=== PATIENT | male | born 1945 | race Caucasian/White ===

== ENCOUNTER 2019-08-30 17:03 | Emergency (ER) | payer MEDICARE, BC ==
[2019-08-30] MEDS ORDERED: Diphtheria,Pertussis(Acell),Tetanus Vaccine 0.5 ML SDV IM ONE (17:50)
[2019-08-30] MEDS ORDERED: Bacitracin Oint 1 GM U/D Packet TOP ONE (17:50)
--- NOTE | 2019-08-30 18:06 | EDM.PDOC ---
ED HPI GENERAL MEDICAL PROBLEM - General Chief Complaint: Laceration Stated Complaint: CUT TO LEFT HAND Time Seen by Provider: 08/30/19 17:55 Source of Information: Reports: Patient History Limitations: Reports: No Limitations - History of Present Illness INITIAL COMMENTS - FREE TEXT/NARRATIVE: 74-year-old male with an injury to his left hand. A spring released and swung around and struck the back of his left hand causing some superficial abrasions on his fingers and a fairly deep laceration on the back of his hand. It is 5-1/ 2 cm and angled, he can move his fingers and has no distal numbness. He has no bony tenderness. He does need a tetanus booster. Onset: Sudden Duration: Hour(s): (Within the last hour) Location: Reports: Upper Extremity, Left Associated Symptoms: Reports: No Other Symptoms - Related Data Allergies Allergy/AdvReac Type Severity Reaction Status Date / Time No Known Allergies Allergy Verified 08/30/19 17:45 Home Meds: Home Meds Aspirin [Ecotrin EC] 81 mg PO DAILY 08/30/19 [History] Calcium Carb,Cit/D3/Phytostrol [Citracal D + Heart Health] 1 tab PO DAILY [History] Cholecalciferol (Vitamin D3) [Vitamin D3] 1 cap PO DAILY 08/30/19 [History] Vitamin E 400 unit PO DAILY 08/30/19 [History] atorvaSTATin [Lipitor] 1 tab PO DAILY 08/30/19 [History] Past Medical History HEENT History: Reports: Cataract, Impaired Vision Cardiovascular History: Reports: High Cholesterol Respiratory History: Reports: Asthma, COPD Musculoskeletal History: Reports: Fracture Neurological History: Reports: Head Trauma - Past Surgical History Cardiovascular Surgical History: Reports: AAA Repair, Vascular Surgery, Other ( See Below) Other Cardiovascular Surgeries/Procedures: leg stents. heart blockage that was "cleared" not stented. GI Surgical History: Reports: Appendectomy Social & Family History - Tobacco Use Smoking Status *Q: Light Tobacco Smoker Years of Tobacco use: 60 Packs/Tins Daily: 0.2 Tobacco Use Comment: patient in the process of quitting smoking. - Caffeine Use Caffeine Use: Reports: Coffee Other Caffeine Use: "all day long" - Recreational Drug Use Recreational Drug Use: No ED ROS GENERAL - Review of Systems Review Of Systems: See Below Constitutional: Denies: Fever, Chills Respiratory: Denies: Shortness of Breath Cardiovascular: Denies: Chest Pain GI/Abdominal: Denies: Abdominal Pain, Nausea, Vomiting Neurological: Denies: Paresthesia ED EXAM, SKIN/RASH Exam: See Below Exam Limited By: No Limitations General Appearance: Alert, No Apparent Distress Respiratory/Chest: No Respiratory Distress Extremities: Other (Remainder of exam is limited to the left hand. The wrist is nontender, he has a superficial abrasion on the dorsal index finger just proximal to the PIP joint. He has a 5-1/2 cm angled laceration on the dorsal aspect of the hand. The laceration is fairly deep, when cleaned the tendons are visualized but are not injured and are intact.) Neurological: Alert, Oriented Psychiatric: Normal Affect, Normal Mood Course - Vital Signs Last Recorded V/S: Last Vital Signs Temp 97.2 F 08/30/19 17:45 Pulse 75 08/30/19 17:45 Resp 16 08/30/19 17:45 BP 111/60 08/30/19 17:45 Pulse Ox 92 L 08/30/19 17:45 - Orders/Labs/Meds Orders: Active Orders 24 hr Category Date Time Status Vaccines to be Administered [RC] PER UNIT ROUTINE Care 08/30/19 17:50 Active Meds: Medications Discontinued Medications Generic Name Dose Route Start Last Admin Trade Name Perry PRN Reason Stop Dose Admin Bacitracin 1 dose 08/30/19 17:50 08/30/19 18:08 Bacitracin Oint 1 Gm TOP 08/30/19 17:51 1 dose ONETIME ONE Administration Diphtheria/Tetanus/Acell Pertussis 0.5 ml 08/30/19 17:50 08/30/19 18:09 Adacel IM 08/30/19 17:51 0.5 ml .ONCE ONE Administration Lidocaine HCl 5 ml 08/30/19 17:50 08/30/19 18:09 Xylocaine-Mpf 1% INJECT 08/30/19 17:51 5 ml ONETIME ONE Administration - Re-Assessments/Exams Free Text/Narrative Re-Assessment/Exam: 08/30/19 18:34 There is anesthetized with 1% lidocaine, cleansed thoroughly with saline and six 5-0 Ethilon sutures were used to close the wound. Topical bacitracin and pressure dressing was applied, he was also given a Tdap booster. Because of the tendon involvement, he was placed on cephalexin 500 3 times a day for a week , and sutures can be removed in 8 days. Departure - Departure Time of Disposition: 19:07 Disposition: Home, Self-Care 01 Clinical Impression: Laceration of left hand Qualifiers: Encounter type: initial encounter Foreign body presence: without foreign body Qualified Code(s): S61.412A - Laceration without foreign body of left hand, initial encounter - Discharge Information Instructions: Laceration Care, Adult, [id number] Referrals: Hector Wu MD [Primary Care Provider] - Forms: ED Department Discharge Care Plan Goals: Keep wound covered and clean while healing, and increase activity as tolerated. Take antibiotics as prescribed and return in 8 days for suture removal. Return sooner if concerns of infection or not healing satisfactorily. Sepsis Event Note - Evaluation Sepsis Screening Result: No Definite Risk - Focused Exam Vital Signs: Vital Signs Temp Pulse Resp BP Pulse Ox 08/30/19 17:45 97.2 F 75 16 111/60 92 L 08/30/19 17:37 97.2 F 75 16 111/60 92 L Date Exam was Performed: 08/30/19 Time Exam was Performed: 21:03 - My Orders Last 24 Hours: My Active Orders 08/30/19 17:50 Vaccines to be Administered [RC] PER UNIT ROUTINE - Assessment/Plan Last 24 Hours: My Active Orders 08/30/19 17:50 Vaccines to be Administered [RC] PER UNIT ROUTINE
== END 2019-08-30 19:07 | disposition home or self-care (01) ==
LOC: JP.ED 17:03
DX: S61.412A Laceration without foreign body of left hand, initial encounter (principal); Z23 Encounter for immunization; F17.210 Nicotine dependence, cigarettes, uncomplicated; J44.9 Chronic obstructive pulmonary disease, unspecified; E78.00 Pure hypercholesterolemia, unspecified; Z79.899 Other long term (current) drug therapy; Z79.82 Long term (current) use of aspirin; W22.8XXA Striking against or struck by other objects, initial encounter
CPT/HCPCS: 12002; 90471; 90715; 99282; 99283; J2001

== ENCOUNTER 2020-12-06 22:40 | Emergency (ER) | payer MEDICARE ==
--- NOTE | 2020-12-07 00:34 | EDM.PDOC ---
ED HPI GENERAL MEDICAL PROBLEM - General Chief Complaint: Laceration Stated Complaint: SMASHED FINGER-L HAND Time Seen by Provider: 12/06/20 23:05 Source of Information: Reports: Patient History Limitations: Reports: No Limitations - History of Present Illness INITIAL COMMENTS - FREE TEXT/NARRATIVE: Presents emergency room today secondary to catching his left index finger in the high [place] tonight he said currently is not have any pain at rest pain does increased when I was removing bandage as well as during cleaning patient states that he is right-handed and he believes his last tetanus was approximately a year or so ago did continue to work tonight but 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 he decided to come into the emergency room as he felt like he needed some stitches PMH--COPD, HLP Meds--atorvastatin, ASA NKDA Tob--former EtOH/Drug--denies --has received COVID immunization (second dose in July per patient report) --most recent tetnus-Tdap 2019 Onset: Today Onset Time: 19:00 - Related Data Allergies Allergy/AdvReac Type Severity Reaction Status Date / Time No Known Allergies Allergy Verified 12/06/20 23:10 Home Meds: Home Meds Aspirin [Ecotrin EC] 81 mg PO DAILY 08/30/19 [History] Calcium Carb,Cit/D3/Phytostrol [Citracal D + Heart Health] 1 tab PO DAILY 08/30/19 [History] Cholecalciferol (Vitamin D3) [Vitamin D3] 1 cap PO DAILY 08/30/19 [History] Vitamin E 400 unit PO DAILY 08/30/19 [History] atorvaSTATin [Lipitor] 1 tab PO DAILY 08/30/19 [History] Past Medical History HEENT History: Reports: Cataract, Impaired Vision Cardiovascular History: Reports: High Cholesterol Respiratory History: Reports: Asthma, COPD Musculoskeletal History: Reports: Fracture Neurological History: Reports: Head Trauma - Past Surgical History Cardiovascular Surgical History: Reports: AAA Repair, Vascular Surgery, Other (See Below) Other Cardiovascular Surgeries/Procedures: leg stents. heart blockage that was "cleared" not stented. GI Surgical History: Reports: Appendectomy Social & Family History - Tobacco Use Tobacco Use Status *Q: Former Tobacco User Used Tobacco, but Quit: Yes Month/Year Tobacco Last Used: 0 - Caffeine Use Caffeine Use: Reports: Coffee Other Caffeine Use: "all day long" - Recreational Drug Use Recreational Drug Use: No ED ROS GENERAL - Review of Systems Review Of Systems: Comprehensive ROS is negative, except as noted in HPI. Musculoskeletal: Reports: Hand Pain (left index fingertip) Skin: Reports: Wound (left index finger tip) ED EXAM, SKIN/RASH Exam: See Below Exam Limited By: No Limitations General Appearance: Alert, WD/WN, Mild Distress Eye Exam: Bilateral Eye: Normal Inspection Ears: Normal External Exam, Hearing Grossly Normal Nose: Normal Inspection Throat/Mouth: Normal Inspection, Normal Voice, No Airway Compromise Head: Atraumatic, Normocephalic Neck: Normal Inspection, Supple, Full Range of Motion Respiratory/Chest: No Respiratory Distress, Lungs Clear, Normal Breath Sounds Cardiovascular: Normal Peripheral Pulses, Regular Rate, Rhythm, No Edema, No Murmur Peripheral Pulses: 2+: Radial (L), Radial (R) (Male) Exam: Deferred Rectal (Males) Exam: Deferred Extremities: Normal Capillary Refill, Other (has noted finger laceration that involves left index fingertip/lateral edge of nail) Neurological: Alert, Oriented, Normal Cognition, Normal Gait, No Motor/Sensory Deficits Psychiatric: Normal Affect, Normal Mood Skin: Warm, Dry, Normal Color, Wound/Incision (has noted finger laceration that involves left index fingertip/lateral edge of nail) ED SKIN PROCEDURES - Laceration/Wound Repair Left Upper Lateral Dorsal Digit - 2nd (Index) Appearance: Subcutaneous, Clean Distal NVT: Neuro & Vascular Intact Anesthetic Type: Digital Local Anesthesia - Lidocaine (Xylocaine): 1% Plain Local Anesthetic Volume: 3cc Skin Prep: Chlorhexidine (Hibiciens), Saline Saline Irrigation (cc's): 500 Exploration/Debridement/Repair: Wound Explored, No Foreign Material Found Closed with: Sutures Lac/Wound length In cm: 3.5 Suture Size: 3-0 # of Sutures: 5 Suture Type: Prolene Drain Placement: No Sterile Dressing Applied: Nurse Tetanus Status Addressed: Yes Complications: No Progress/Comments: bactroban ointment and dressing with fingertip splint for protection Course - Vital Signs Text/Narrative:: 0105--d/w patient home care measures to include importance of keeping wound clean/covered. wash twice daily (and as necessary if becomes dirty) with soap/water, apply bactroban ointment and cover with dressing and fingersplint for protection. follow up with family doctor/PCM in 1 week for wound check and suture removal Last Recorded V/S: Last Vital Signs Temp 97.6 F 12/06/20 23:09 Pulse 80 12/06/20 23:09 Resp 14 12/06/20 23:09 BP 132/85 12/06/20 23:09 Pulse Ox 92 L 12/06/20 23:09 - Orders/Labs/Meds Orders: Active Orders 24 hr Category Date Time Status Mupirocin Oint [Bactroban Oint] Med 12/07/20 01:02 Once 1 gm TOP ONETIME ONE Meds: Medications Discontinued Medications Generic Name Dose Route Start Last Admin Trade Name Freq PRN Reason Stop Dose Admin Lidocaine HCl 5 ml 12/06/20 23:14 12/06/20 23:50 Lidocaine 1% 5 Ml Sdv INJECT 12/06/20 23:15 5 ml ONETIME ONE Administration Departure - Departure Time of Disposition: 01:07 Disposition: Home, Self-Care 01 Clinical Impression: Laceration of left index finger w/o foreign body with damage to nail, Accident on farm, Crush accident - Discharge Information *PRESCRIPTION DRUG MONITORING PROGRAM REVIEWED*: Not Applicable *COPY OF PRESCRIPTION DRUG MONITORING REPORT IN PATIENT AROLDO: Not Applicable Instructions: Laceration Care, Adult, [id number], Sutures, Sanaz, or Adhesive Wound Closure, [id number], Nail Bed Injury, [id number] Referrals: Hector Wu MD [Primary Care Provider] - Forms: ED Department Discharge Additional Instructions: Home care measures to include importance of keeping wound clean/covered was discussed--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/protected from dirty environment/further injury You should wash twice daily (and as necessary if becomes dirty) with soap/water, apply bactroban ointment and cover with dressing and fingersplint for protection Follow up with family doctor/PCM in 1 week for wound check and suture removal Sepsis Event Note (ED) - Evaluation Sepsis Screening Result: No Definite Risk - Focused Exam Vital Signs: Vital Signs Temp Pulse Resp BP Pulse Ox 12/06/20 23:09 97.6 F 80 14 132/85 92 L - My Orders Last 24 Hours: My Active Orders 12/07/20 01:02 Mupirocin Oint [Bactroban Oint] 1 gm TOP ONETIME ONE - Assessment/Plan Last 24 Hours: My Active Orders 12/07/20 01:02 Mupirocin Oint [Bactroban Oint] 1 TOP ONETIME ONE
[2020-12-07] MEDS ORDERED: Mupirocin Oint 22 GM Tube TOP ONE (01:02)
[2020-12-07] MEDS ORDERED: Mupirocin Oint 22 GM Tube ONE (01:29)
== END 2020-12-07 01:37 | disposition home or self-care (01) ==
LOC: JP.ED 22:40
DX: S67.191A Crushing injury of left index finger, initial encounter (principal); S61.311A Laceration without foreign body of left index finger with damage to nail, initial encounter; E78.00 Pure hypercholesterolemia, unspecified; J44.9 Chronic obstructive pulmonary disease, unspecified; Z87.891 Personal history of nicotine dependence; Z79.82 Long term (current) use of aspirin; Z79.899 Other long term (current) drug therapy; W23.0XXA Caught, crushed, jammed, or pinched between moving objects, initial encounter
CPT/HCPCS: 12002; 99282; A9270